=== PATIENT | male | born 1955 | race Caucasian/White ===

== ENCOUNTER 2018-08-22 13:42 | Inpatient (IN) | payer OTHER ==
[~2018-08-22] VITALS: Ht 180.3 cm; Wt 66.0 kg
[~2018-08-22 13:42] MED LIST: BACTRIM DS TAB1 EACH PO; CIPROFLOXACIN500 M1 PO; CYMBALTA60 MG PO; NAPROSYN500 MG PO; PERCOCET 5-3251 EACH PO; PREDNISONE 20 M20 MG PO; TESTIM5 GM TD; ULTRAM 50MG TAB50 MG PO; VICOPROFEN 2001 EACH PO; XANAX 0.25 MG0.25 MG PO
[2018-08-22 13:48] VITALS: BP 117/68
[2018-08-22] MEDS ORDERED: XYOSTED50 MG/0.5 SUBQ (13:56)
[2018-08-22] MEDS ORDERED: ASPIRIN325 PO (13:56)
[2018-08-22] MEDS ORDERED: ZOLOFT25 MG PO (13:57)
[2018-08-22] MEDS ORDERED: XANAX 0.25 MG0.25 MG PO (13:57)
[2018-08-22] MEDS ORDERED: CHOLESTEROL MED (13:58)
[2018-08-22 14:11] LABS: ABSOLUTE BASOPHILS 0.1 thou/uL (0.0-0.2); ABSOLUTE LYMPHOCYTES 1.7 thou/uL (0.8-5.3); ABSOLUTE MONOCYTES 0.8 thou/uL (0.0-1.2); ABSOLUTE NEUTROPHILS 7.7 thou/uL (1.6-8.1); BASOPHILS 0.6 %; EOSINOPHILS 0.3 %; HEMATOCRIT 43.7 % (42.0-52.0); HEMOGLOBIN 15.1 gm/dL (14.0-18.0); LYMPHOCYTES 16.1 %; MCH 32.4 pg (26.0-34.0); MCHC 34.6 g/dL (28.0-37.0); MCV 93.7 fL (80.0-100.0); MONOCYTES 7.8 %; MPV 7.2 fl. (7.2-11.1); NUCLEATED RBCS 0 /100WBC; PLATELET COUNT* 303 thou/uL (150-400); POLYS 75.2 %; RBC 4.67 mil/uL (4.50-6.00); RDW-CV 14.1 % (10.5-14.5); WBC 10.3 thou/uL (4.0-11.0)
[2018-08-22 14:17] LABS: PROTIME 10.6 Seconds (9.20-11.50)
[2018-08-22 14:28] LABS: ANION GAP 9 mmol/L (7-16); BUN 21 mg/dL (7-18); CALCIUM 9.3 mg/dL (8.5-10.1); CHLORIDE 104 mmol/L (98-107); CO2 28 mmol/L (21-32); CREATININE 1.2 mg/dL (0.6-1.3); GLUCOSE 90 mg/dL (70-99); POTASSIUM 3.9 mmol/L (3.5-5.1); SODIUM 141 mmol/L (136-145); TROPONIN-I LEVEL <0.06 ng/mL (<0.06)
[2018-08-22 14:36] LABS: ALBUMIN 4.2 g/dL (3.4-5.0); ALKALINE PHOSPHATASE 86 U/L (46-116); SGOT 23 U/L (15-37); SGPT 27 U/L (30-65); TOTAL BILIRUBIN 0.4 mg/dL (<0.1-1.0); TOTAL PROTEIN 7.4 g/dL (6.4-8.2)
[2018-08-22 17:06] VITALS: BP 124/77
[2018-08-22 17:30] VITALS: BP 129/63
[2018-08-22] MEDS ORDERED: LIPITOR 20 MG T20 M1 PO (19:54)
[2018-08-22] MEDS ORDERED: NICOTINE TRANSD21 M1 TRANSDERM (19:56)
[2018-08-22 20:00] VITALS: BP 115/56
[2018-08-23] VITALS (7 sets, daily range): BP systolic 89–125; BP diastolic 49–81
[2018-08-23 05:26] LABS: ALBUMIN 3.5 g/dL (3.4-5.0); ALKALINE PHOSPHATASE 71 U/L (46-116); ANION GAP 8 mmol/L (7-16); BUN 21 mg/dL (7-18); CALCIUM 8.9 mg/dL (8.5-10.1); CHLORIDE 104 mmol/L (98-107); CHOLESTEROL 146 mg/dL (<200); CO2 27 mmol/L (21-32); CREATININE 1.1 mg/dL (0.6-1.3); GLUCOSE 68 mg/dL (70-99); HDL CHOLESTEROL 47 mg/dL (>40); LDL CHOLESTEROL 86 mg/dL (<100); SGOT 18 U/L (15-37); SGPT 25 U/L (30-65); SODIUM 139 mmol/L (136-145); TC:HDL 3.1 Ratio (Not establshd); TOTAL BILIRUBIN 0.6 mg/dL (<0.1-1.0); TOTAL PROTEIN 6.4 g/dL (6.4-8.2); TRIGLYCERIDE 67 mg/dL (<150); VLDL 13 mg/dL (<40)
[2018-08-23 05:36] LABS: SERUM ASSESSMENT Clear
--- NOTE | 2018-08-23 11:57 | 2DMMODE ---
[place] [address] 2 D/M-MODE ECHOCARDIOGRAM Name: SARAH MA Room: [address] IN [facility]#: [id number] Admission: 08/22/18 Attend Phys: David Jimenez, Discharge: Date of : 57 Date of Service: 08/23/18 1157 Report #: [id number] THIS REPORT FOR: //name// APPROVED REPORT Study performed: 08/23/2018 09:48:53 EXAM: Comprehensive 2D, Doppler, and color-flow Echocardiogram Patient Location: In-Patient Room #: [facility] Status: routine BSA: 1.87 HR: 57 bpm BP: 125/71 mmHg Rhythm: NSR Other Information Study Quality: Good Indications CVA/TIA Echo Enhancing Agent Indication: Rule out Shunt Agent(s) / Amount(s) Used: Agitated Saline 10 cc 2D Dimensions IVSd: 8.53 (7-11mm) LVOT Diam: 20.28 (18-24mm) LVDd: 42.45 mm PWd: 9.18 (7-11mm) Ascending Ao: 31.87 (22-36mm) LVDs: 26.98 (25-40mm) Aortic Root: 32.27 mm Volumes Left Atrial Volume (Systole) LA ESV Index: 14.70 mL/m2 Aortic Valve AoV Peak Khurram.: 1.27 m/s AO Peak Gr.: 6.46 mmHg LVOT Max P.66 mmHg AO Mean Gr.: 2.65 mmHg LVOT Mean P.92 mmHg LVOT Max V: 1.38 m/s AO V2 VTI: 24.01 cm LVOT Mean V: 0.76 m/s OC (VTI): 3.34 cm2 LVOT V1 VTI: 24.83 [place] [address] 2 D/M-MODE ECHOCARDIOGRAM Name: SARAH MA Room: [address] IN .R.#: [id number] Admission: 08/22/18 Attend Phys: David Jimenez, Discharge: Date of : 57 Date of Service: 08/23/18 1157 Report #: [id number] Mitral Valve E/A Ratio: 1.62 MV Decel. Time: 211.34 ms MV E Max Khurram.: 0.82 m/s MV PHT: 61.29 ms MVA (PHT): 3.59 cm2 TDI E/Lateral E': 5.13 E/Medial E': 6.83 Medial E' Khurram.: 0.12 m/s Lateral E' Khurram.: 0.16 m/s Pulmonary Valve PV Peak Khurram.: 0.83 m/s PV Peak Gr.: 2.74 mmHg Left Ventricle The left ventricle is normal size. There is normal LV segmental wall motion. There is normal left ventricular wall thickness. Left ventricular systolic function is normal. LVEF is 65-70%. The left ventricular diastolic function is normal. Right Ventricle The right ventricle is normal size. The right ventricular systolic function is normal. Atria The left atrium size is normal. Injection of agitated saline showed evidence of iwfzu-fs-preg shunt. Small PFO is possible. The right atrium size is normal. Aortic Valve The aortic valve is normal in structure. Trace aortic regurgitation. There is no aortic valvular stenosis. Mitral Valve The mitral valve is normal in structure. There is no mitral valve regurgitation noted. No evidence of mitral valve stenosis. Tricuspid Valve The tricuspid valve is normal in structure. Unable to assess PA pressure. Trace tricuspid regurgitation. Pulmonic Valve The pulmonary valve is normal in structure. There is no [place]mon[place] [address] 2 D/M-MODE ECHOCARDIOGRAM Name: SARAH MA Room: [address] IN .R.#: [id number] Admission: 08/22/18 Attend Phys: David Jimenez, Discharge: Date of : 57 Date of Service: 08/23/18 1157 Report #: [id number] Great Vessels The aortic root is normal in size. IVC is normal in size and collapses >50% with inspiration. Pericardium There is no pericardial effusion. <Conclusion> The left ventricle is normal size. There is normal left ventricular wall thickness. Left ventricular systolic function is normal. LVEF is 65-70%. The left ventricular diastolic function is normal. Injection of agitated saline showed evidence of [id number]-[id number] shunt. Small PFO is possible. Trace tricuspid regurgitation. IVC is normal in size and collapses >50% with inspiration. <ELECTRONICALLY SIGNED> By: Vinny Willard MD, FACC 08/23/18 1157 1157 1157 Vinny Willard MD, FACC /INF
--- NOTE | 2018-08-23 13:33 | EKG ---
[place] [address] ELECTROCARDIOGRAM REPORT Name: SARAH MA Room: [address] ADM IN M.R.#: [id number] Admission: 08/22/18 Attend Phys: David Jimenez MD Discharge: Date of : 57 Report #: [id number] THIS REPORT FOR: //name// [facility] ED Test Date: 2018-08-22 Test Time: 14:05:50 Pat Name: SARAH MA Department: Room: [facility] Gender: M [employer]: DUYEN : 1955 Requested By: Peter Sandoval Order Number: [id number] MD: Cezar Matta Measurements Intervals [place] Rate: 79 P: 73 IA: 131 QRS: 81 QRSD: 91 T: 65 QT: 372 QTc: 427 Interpretive Statements Sinus rhythm Consider right atrial enlargement Borderline right axis deviation Compared to ECG 01/12/2010 12:51:23 Sinus bradycardia no longer present Electronically Signed On 08-23-2018 13:33:46 CDT by Cezar Matta [email or web address] <ELECTRONICALLY SIGNED> By: Cezar Matta MD, [facility] 08/23/18 1333 1405 1405 Cezar Matta MD, [facility] /EPI
--- NOTE | 2018-08-23 13:36 | EKG ---
[place] [address] ELECTROCARDIOGRAM REPORT Name: SARAH MA Room: [address] ADM IN M.R.#: [id number] Admission: 08/22/18 Attend Phys: David Jimenez MD Discharge: Date of : 57 Report #: [id number] THIS REPORT FOR: //name// [facility] ED Test Date: 2018-08-22 Test Time: 16:45:29 Pat Name: SARAH MA Department: Room: [facility] Gender: M Substance Abuse Therapist: MICHEL : 1955 Requested By: Peter Sandoval Order Number: [id number] MD: Cezar Matta Measurements Intervals [place] Rate: 60 P: 82 MI: 140 QRS: 81 QRSD: 91 T: 72 QT: 405 QTc: 405 Interpretive Statements Sinus rhythm Borderline right axis deviation Electronically Signed On 08-23-2018 13:36:07 CDT by Cezar Matta [email or web address] <ELECTRONICALLY SIGNED> By: Cezar Matta MD, [facility] 08/23/18 1336 1645 1645 Cezar Matta MD, FACC /EPI
[2018-08-23 23:07] LABS: GLYCOHEMOGLOBIN (HGB A1C) 5.3 % (4.8-5.6)
[2018-08-24 04:00] VITALS: BP 92/44
[2018-08-24 09:01] VITALS: BP 115/62
[2018-08-24] MEDS ORDERED: CENTRUM SILVER1 EAC2 PO (10:49)
[2018-08-24] MEDS ORDERED: NICOTINE TRANSD14 M1 TRANSDERM (10:49)
[2018-08-24] MEDS ORDERED: B12INJ SUBQ (10:49)
[2018-08-24 12:00] VITALS: BP 133/73
[2018-08-24 13:37] VITALS: BP 133/73
[2018-08-24 16:00] VITALS: BP 114/65
[2018-08-24 20:00] VITALS: BP 97/79
[2018-08-25] VITALS: BP 115/64
[2018-08-25 04:00] VITALS: BP 115/61
[2018-08-25 08:16] VITALS: BP 117/64
[2018-08-25] MEDS ORDERED: OMEPRAZOLE40 MG PO (11:24)
[2018-08-25 12:20] VITALS: BP 144/78
--- NOTE | 2018-08-29 13:37 | CON ---
[address] [address] CONSULTATION Name: SARAH MA Room: [address] IN M.R.#: [id number] Admission: 08/22/18 Attend Phys: David Jimenez MD Discharge: 08/25/18 Date of : 57 Report #: [id number] THIS REPORT FOR: //name// CC: Adilson Jimenez DATE OF SERVICE: 08/22/2018 HISTORY OF PRESENT ILLNESS: This is a 62-year-old male patient who has been having speech difficulty for 2-3 days. History is not very clear. He was admitted to [facility] and he was having problem with the left arm and chest pain and that has become better. His speech difficulty is new. He is pretty certain that he had an MRI done at [facility]. REVIEW OF SYSTEMS: Initially, he said that he does not have any anxiety, but then, he told me that he is taking Xanax for about 2 months. He also takes Zoloft, but that was started recently. I do not have record from [place], but I suspect they considered anxiety as a diagnosis. He does have a history of diabetes. He has a testicular implant, but he is certain that it is compatible with MRI because they did MRI at [facility] and they did not find any metal there. A 14-point review of system was carried out. He indicates he has not had any stroke in the past. He does not have any chest pain. I do not know what workup was done. He does take testosterone. He says his testosterone levels fluctuate; that was his relevant 14-point review of system. PAST MEDICAL HISTORY: Negative for this kind of episodes. FAMILY HISTORY: Negative for any early age stroke. SOCIAL HISTORY: The patient has a history of smoking. He drinks alcohol only occasionally. PHYSICAL EXAMINATION: Indicates he is alert, responsive. He does have hesitant speech, but intermittently, he does better and is able to talk better. Cranial nerve examination 2-12 looks unremarkable. I did not see any facial weakness. I am not certain about the visual mcintyre. His strength, sensation, reflexes and tone is symmetrical. He moves things slowly, so I do not know if it is normal and what is normal for him. I could not look at his fundus. There is no meningeal sign. He is thinly built individual who does not have any dysmorphic features of eyes, ears and face. His vision and hearing look adequate. He has no thyroid mass. He does not appear to be in much respiratory difficulty. Cardiac examination is unremarkable. His blood pressure is 127/79, respirations 18, pulse is 63, temperature is 98.6. He did have a CT scan of the head [place] [address] CONSULTATION Name: SARAH MA Room: [address] IN .R.#: [id number] Admission: 08/22/18 Attend Phys: David Jimenez MD Discharge: 08/25/18 Date of : 57 Report #: [id number] IMPRESSION: It is not certain what the etiology of the patient's symptoms is. We will exclude the possibility of stroke by doing MRI in this patient. He understands the indication, potential complication, especially with his testicular situations after MRI. He wants to proceed with that. I will also like to do CT angiogram in this patient to make sure there is no pathology there. I discussed the potential complication of CT angiogram in this patient and he understands that very well. He wants to proceed with it. We will see what this testing shows and if we need to do any further neurological testing. Thank you very much for this referral. <ELECTRONICALLY SIGNED> By: Wil Gastelum MD 08/29/18 1337 1620 [id number] Gastelum MD /nt
== END 2018-08-25 13:45 | disposition home or self-care (01) | DRG 92 ==
LOC: M.ERS 13:42 → M.TBA-ER 15:21 → M.2W 15:21
PROVIDERS: Emergency Medicine Emergency Medical Services; ADMIT Internal Medicine
DX: R47.81 Slurred speech (principal); Q21.1 Atrial septal defect; R47.01 Aphasia; F41.1 Generalized anxiety disorder; E11.9 Type 2 diabetes mellitus without complications; E29.1 Testicular hypofunction; E78.5 Hyperlipidemia, unspecified; R20.0 Anesthesia of skin; R27.0 Ataxia, unspecified; F32.9 Major depressive disorder, single episode, unspecified; Z87.891 Personal history of nicotine dependence; Z79.82 Long term (current) use of aspirin; Z79.899 Other long term (current) drug therapy; Z88.1 Allergy status to other antibiotic agents; Z88.2 Allergy status to sulfonamides; Z88.8 Allergy status to other drugs, medicaments and biological substances

== ENCOUNTER → 2018-09-07 | Outpatient (CLI) | payer OTHER ==
[~2018-09-07] MED LIST changes: +ASPIRIN325 PO; +B12INJ SUBQ; +CENTRUM SILVER1 EAC2 PO; +CHOLESTEROL MED; +LIPITOR 20 MG T20 M1 PO; +NICOTINE TRANSD14 M1 TRANSDERM; +NICOTINE TRANSD21 M1 TRANSDERM; +OMEPRAZOLE40 MG PO; +XYOSTED50 MG/0.5 SUBQ; +ZOLOFT25 MG PO
[2018-09-09 10:08] LABS: ANA INTERPRETATION Negative (Negative)
== END ==
LOC: M.LAB 14:25
PROVIDERS: Psychiatry & Neurology Neuromuscular Medicine
DX: R47.9 Unspecified speech disturbances (principal); R25.3 Fasciculation

== ENCOUNTER → 2018-09-12 | Outpatient (CLI) | payer OTHER ==
--- NOTE | 2018-09-15 19:12 | EEG ---
[address] [address] EEG STUDY REPORT Name: CARISALISANDRASARAH TOÑITO Room: [facility].R.#: [id number] Admission: 09/12/18 Attend Phys: Wil Gastelum MD Discharge: Date of : 57 Report #: [id number] THIS REPORT FOR: //name// CC: Adilson Gastelum This patient's EEG is being done to evaluate the patient for seizure disorder. EEG was done by placing the electrode by standard 10-20 system of electrode placement. Both referential and sequential montages were used for recording. Background activity in this patient's EEG is about 11 Hz and 40 microvolt. It is a symmetrical activity. Photic stimulation was unremarkable. The patient became drowsy and that was associated with bilateral slowing and vertex sharp waves. Throughout the record, no active epileptiform activity was noticed. IMPRESSION: This patient's EEG is within normal limit. Thank you very much for this referral. <ELECTRONICALLY SIGNED> By: Wil Gastelum MD 09/15/18 [id number] 1955Wil Gastelum MD /nt
== END ==
LOC: M.CRD 12:42
DX: R47.9 Unspecified speech disturbances (principal); R25.3 Fasciculation